=== PATIENT | female | born 1995 | race Caucasian/White ===

== ENCOUNTER 2016-09-15 14:35 | Emergency (ER) | payer OTHER ==
[~2016-09-15] VITALS: Wt 102.0 kg
[~2016-09-15 14:35] MED LIST: ALBU18HF INHALATION; ALBU2.5V3 NEB; ALBU8.5H5 IH; CALC-176 PO; FERR325C PO; FLUT16SP17 NASAL; LORA10CA PO; PREN1TAB74 PO
[2016-09-15] MEDS ORDERED: IBUP-1542 PO (16:06)
--- NOTE | 2016-09-15 16:09 | ERD ---
ER Documentation Chief Complaint Date/Time DATE: 09/15/16 TIME: 16:07 Chief Complaint CHEST PAIN X 2 MONTHS HPI This 20 year-old female presents with left-sided chest pain for last 2 months. Is intermittent and worse with movement and deep breathing. She has no history of hemoptysis, fevers, leg swelling shortness of breath. ROS All systems reviewed and are negative except as per history of present illness. Medications Home Meds Active Scripts Ibuprofen* (Motrin*) 600 Mg Tab, 600 MG PO Q6, #20 TAB Prov:WAYNE OVERTON MD 09/15/16 Loratadine* (Claritin*) 10 Mg Capsule, 10 MG PO DAILY for 14 Days, CAP Prov:CHAD DIEZ PA-C 04/15/16 Fluticasone Propionate* (Fluticasone Propionate* Nasal) 50 Mcg/[place] - 16 Gm [place].susp, 1 SPRAY NASAL BID, #1 BOTTLE TO EACH NOSTRIL Prov:CHAD DIEZ PA-C 04/15/16 Albuterol Sulfate* (Albuterol Sulfate* Neb) 0.083%-3 Ml Neb, 2.5 MG NEB Q4 Y for SHORTNESS OF BREATH, #30 EA Prov:CHAD DIEZ PA-C 04/15/16 Albuterol Sulfate* (Ventolin HFA*) 18 Gm Hfa.aer.ad, 2 PUFF INHALATION Q4H, #1 INHALER Prov:CHAD DIEZ PA-C 04/15/16 Reported Medications Ferrous Sulfate (Iron) 325 Mg Capsr, 325 MG PO DAILY 11/30/15 Calcium Cmb 2-Mag Cmb 12-Vit D3 (Calcium 500) 1 Each Tablet, 1 TAB PO, TAB 11/30/15 Vit-Iron Fumarate-FA ( Vitamin Formula) 1 Tab Tablet, 1 TAB PO DAILY, TAB 11/30/15 Albuterol Sulfate* (Albuterol Sulfate* HFA) 8.5 Gm Hfa.aer.ad, 2 PUFF IH Q6 Y for SHORTNESS OF BREATH, EA 07/04/14 Allergies Allergies: Coded Allergies: No Known Allergy (Unverified , 04/14/16) PMhx/Soc Medical and Surgical Hx: pt denies Surgical Hx History of Surgery: No Anesthesia Reaction: No Hx Neurological Disorder: No Hx Respiratory Disorders: Yes (asthma) Hx Cardiac Disorders: No Hx Psychiatric Problems: No Hx Miscellaneous Medical Probl: No Hx Alcohol Use: No Hx Substance Use: No Hx Tobacco Use: No Smoking Status: Never smoker Physical Exam Vitals Vital Signs Date Time Temp Pulse Resp B/P Pulse Ox O2 Delivery O2 Flow Rate FiO2 09/15/16 14:38 98.0 71 18 140/71 99 Physical Exam Const: [] Alert, [id number], pleasant Head: Atraumatic Eyes: Normal Conjunctiva ENT: Normal External Ears, Nose and Mouth. Neck: Full range of motion..~ No meningismus. Resp: Clear to auscultation bilaterally Cardio: Regular rate and rhythm, no murmurs. Mild reproducible left-sided pain at the costochondral junction. Abd: Soft, non tender, non distended. Normal bowel sounds Skin: No petechiae or rashes Back: No midline or flank tenderness Ext: No cyanosis, or edema Neur: Awake and alert Psych: Normal Mood and Affect Procedures/MDM Chest X-ray 1V Interpreted by me: Soft Tissue: No acute abnormalities Bones: No acute abnormalities Mediastinum/Cardiac Silhouette/Lungs: [No acute abnormalities]. Impression- normal 1 view chest x-ray EKG: Rate/Rhythm: [Normal Sinus Rhythm] rate equals 62 QRS, ST, T-waves: [No changes consistent w/ acute ischemia] Impression: [No evidence of ischemia or arrhythmia]. Impression-normal EKG Patient presents with 2 month history of intermittent left chest wall pain, likely costochondritis. Patient will be treated ibuprofen and observation at home. The patient was stable with no new complaints during the ER course. Clinically, there is no current evidence to suggest meningitis, sepsis, acute abdomen, pneumonia, acute coronary syndrome, pulmonary embolism, or any other emergent condition appearing to require further evaluation or hospitalization. The patient should certainly return for any new or worsening symptoms per the aftercare instructions. They should otherwise follow-up with her primary care doctor for reevaluation this week. Departure Diagnosis: Primary Impression: Chest pain Chest pain type: unspecified Qualified Code: R07.9 - Chest pain, unspecified type Condition: Stable Patient Instructions: Chest Wall Pain, Costochondritis Additional Instructions: X-ray and EKG normal. Likely costochondritis. Recheck for new or worsening symptoms-fever, shortness breath or with primary care doctor. WAYNE OVERTON MD Sep 15, 2016 16:09
--- NOTE | 2016-09-15 16:19 | RADRPT ---
PROCEDURE: XR Chest. CLINICAL INDICATION: Chest pain. TECHNIQUE: Single frontal view of the chest was obtained COMPARISON: Chest x-ray 04/15/2016. FINDINGS: The soft tissues are normal. The bony elements are normal. The heart, left side aorta, cardiomedias tinal silhouette, pulmonary vasculature and hilar structures are normal. The lungs are clear. The co stophrenic angles are normal. IMPRESSION: 1. Stable chest x-ray with no evidence of active cardiopulmonary disease. RPTAT:AAJJ Physician Pauline Date Time Electronically viewed and signed by John Deshpande Physician on 09/15/2016 16:19 BUSHRA/
== END 2016-09-15 17:10 | disposition home or self-care (01) ==
LOC: FTE 14:35
DX: R07.1 Chest pain on breathing (principal); J45.909 Unspecified asthma, uncomplicated
CPT/HCPCS: 71010; Z7502

== ENCOUNTER 2016-10-13 19:56 | Emergency (ER) | payer OTHER ==
[~2016-10-13] VITALS: Ht 162.6 cm; Wt 114.5 kg
[~2016-10-13 19:56] MED LIST changes: +IBUP-1542 PO
[2016-10-13 20:02] VITALS: Ht 162.6 cm; Wt 114.5 kg
[2016-10-13] MEDS ORDERED: ACETAMINOPHEN 325 MG TAB PO ONE (21:00)
[2016-10-13] MEDS ORDERED: SOD CHLORIDE 0.9% 1,000 ML IV ONE (21:00)
[2016-10-13 21:22] LABS: ADD SCAN DIFF NO
[2016-10-13 21:28] LABS: ABNORMAL IP MESSAGE 1; BASOPHILS % 0.4 % (0.0-2.0); EOSINOPHILS # 0.1 10^3/ul (0.0-0.5); EOSINOPHILS % 0.7 % (0.0-7.0); HEMATOCRIT 38.5 % (37.0-47.0); HEMOGLOBIN 12.6 g/dl (12.0-16.0); LYMPHOCYTES # 0.5 10^3/ul (0.8-2.9); LYMPHOCYTES % 6.9 % (18.0-55.0); MEAN CORPUSCULAR HEMOGLOBIN 25.7 pg (29.0-33.0); MEAN CORPUSCULAR HGB CONC 32.7 g/dl (32.0-37.0); MEAN CORPUSCULAR VOLUME 78.4 fl (72.0-104.0); MEAN PLATELET VOLUME 9.3 fl (7.4-10.4); MONOCYTE # 0.7 10^3/ul (0.3-0.9); MONOCYTES % 10.1 % (0.0-13.0); NEUTROPHIL # 5.9 10^3/ul (1.6-7.5); NEUTROPHILS % 81.3 % (30.0-74.0); PLATELET COUNT 183 10^3/UL (140-415); RED BLOOD COUNT 4.91 10^6/ul (4.20-5.40); RED CELL DISTRIBUTION WIDTH 14.1 % (11.5-14.5); WHITE BLOOD COUNT 7.3 10^3/ul (4.8-10.8)
[2016-10-13 21:35] LABS: ADD UMIC YES; URINE BILIRUBIN (Dip) NEGATIVE (NEGATIVE); URINE BLOOD (Dip) NEGATIVE (NEGATIVE); URINE COLOR LT. YELLOW (YELLOW); URINE GLUCOSE (Dip) NEGATIVE (NEGATIVE); URINE KETONES (Dip) NEGATIVE (NEGATIVE); URINE LEUKOCYTE ESTERASE (Dip) 2+ (NEGATIVE); URINE NITRITE (Dip) NEGATIVE (NEGATIVE); URINE TOTAL PROTEIN (Dip) NEGATIVE (NEGATIVE); URINE UROBILINOGEN (Dip) 0.2 E.U./dL (0.1-1.0)
[2016-10-13 21:40] LABS: ALBUMIN 4.4 g/dl (3.3-4.9); POTASSIUM 3.5 mmol/L (3.5-5.1)
[2016-10-13 21:42] LABS: CREATININE 0.64 mg/dl (0.44-1.00)
[2016-10-13 21:43] LABS: ALBUMIN/GLOBULIN RATIO 1.29; CALCIUM 8.7 mg/dl (8.4-10.2); TOTAL PROTEIN 7.8 g/dl (6.1-8.1)
[2016-10-13] MEDS ORDERED: ACET325T33 PO (21:58)
[2016-10-13] MEDS ORDERED: CEPH-443 PO (21:58)
[2016-10-13 21:59] LABS: SQUAMOUS EPITHELIAL CELL,UR MANY
[2016-10-13 22:00] LABS: BACTERIA,URINE FEW; URINE RBCS 0-2 /HPF (0)
[2016-10-13 22:46] VITALS: BP 122/68; PULSE 103; RESP 20; TEMP 98.3
--- NOTE | 2016-10-20 | ERD ---
ER Documentation Chief Complaint Date/Time DATE: 10/19/16 TIME: 23:54 Chief Complaint 6 weeks , low back pain x 2 days, fever today, chills HPI pt is a [id number] 6 week 20 yo female presenting to the ED due to low back pain bilaterally which began yesterday. Today she had tactile fevers. Symptoms are mild. No vaginal bleeding or discharge reported. The pt denies urinary sxs. NO other symptoms to report at this time. ROS All systems reviewed and are negative except as per history of present illness. Medications Home Meds Active Scripts Acetaminophen* (Tylenol*) 325 Mg Tablet, 2 TAB PO Q6 Y for PAIN AND OR ELEVATED TEMP, #20 TAB Prov:BISMARK WARD PA-C 10/13/16 Cephalexin* (Keflex*) 500 Mg Capsule, 500 MG PO BID for 7 Days, #14 CAP Prov:BISMARK WARD PA-C 10/13/16 Ibuprofen* (Motrin*) 600 Mg Tab, 600 MG PO Q6, #20 TAB Prov:WAYNE STARKS MD 09/15/16 Loratadine* (Claritin*) 10 Mg Capsule, 10 MG PO DAILY for 14 Days, CAP Prov:CHAD DIEZ PA-C 04/15/16 Fluticasone Propionate* (Fluticasone Propionate* Nasal) 50 Mcg/[place] - 16 Gm [place].susp, 1 SPRAY NASAL BID, #1 BOTTLE TO EACH NOSTRIL Prov:CHAD DIEZ PA-C 04/15/16 Albuterol Sulfate* (Albuterol Sulfate* Neb) 0.083%-3 Ml Neb, 2.5 MG NEB Q4 Y for SHORTNESS OF BREATH, #30 EA Prov:CHAD DIEZ PA-C 04/15/16 Albuterol Sulfate* (Ventolin HFA*) 18 Gm Hfa.aer.ad, 2 PUFF INHALATION Q4H, #1 INHALER Prov:CHAD DIEZ PA-C 04/15/16 Reported Medications Ferrous Sulfate (Iron) 325 Mg Capsr, 325 MG PO DAILY 11/30/15 Calcium Cmb 2-Mag Cmb 12-Vit D3 (Calcium 500) 1 Each Tablet, 1 TAB PO, TAB 11/30/15 Vit-Iron Fumarate-FA ( Vitamin Formula) 1 Tab Tablet, 1 TAB PO DAILY, TAB 11/30/15 Albuterol Sulfate* (Albuterol Sulfate* HFA) 8.5 Gm Hfa.aer.ad, 2 PUFF IH Q6 Y for SHORTNESS OF BREATH, EA 07/04/14 Allergies Allergies: Coded Allergies: No Known Allergy (Unverified , 04/14/16) PMhx/Soc Medical and Surgical Hx: pt denies Surgical Hx History of Surgery: No Anesthesia Reaction: No Hx Neurological Disorder: No Hx Respiratory Disorders: Yes (asthma) Hx Cardiac Disorders: No Hx Psychiatric Problems: No Hx Miscellaneous Medical Probl: No Hx Alcohol Use: No Hx Substance Use: No Hx Tobacco Use: No Smoking Status: Never smoker FmHx non contributory for chief complaint. Physical Exam Vitals temp: 101.4F pulse: 122 BP: 136/74 Resp 20 O2 sat 98% on RA. Physical Exam Const: Pt is resting comfortably in no acute distress. Head: Atraumatic Eyes: Normal Conjunctiva ENT: Normal External Ears, Nose and Mouth. Neck: Full range of motion..~ No meningismus. Resp: Clear to auscultation bilaterally Cardio: Regular rate and rhythm, no murmurs Abd: Soft, non tender, non distended. Normal bowel sounds Skin: No petechiae or rashes Back: No midline or flank tenderness Ext: No cyanosis, or edema Neur: Awake and alert Psych: Normal Mood and Affect Results 24 hrs Laboratory Tests Test 10/13/16 20:59 10/13/16 21:10 Urine Bacteria FEW Urine Bilirubin NEGATIVE Urine Clarity CLOUDY Urine Color LT. YELLOW Urine Glucose NEGATIVE% Urine Hemoglobin NEGATIVE Urine Ketones NEGATIVE Urine Leukocyte Esterase 2+ Urine Microscopic RBC 0-2/HPF Urine Microscopic WBC 10-25/HPF Urine Nitrite NEGATIVE Urine Specific [place] 1.015 Urine Squamous Epithelial Cells MANY Urine Total Protein NEGATIVE Urine Urobilinogen 0.2 E.U./dL Urine pH 6.0 Alanine Aminotransferase (ALT/SGPT) 23IU/L Albumin 4.4g/dl Albumin/Globulin Ratio 1.29 Alkaline Phosphatase 91IU/L Anion Gap 20 Aspartate Amino Transf (AST/SGOT) 18IU/L Basophils # 0.010^3/ul Basophils % 0.4% Blood Urea Nitrogen 6mg/dl Calcium Level 8.7mg/dl Carbon Dioxide Level 24mmol/L Chloride Level 100mmol/L Creatinine 0.64mg/dl Direct Bilirubin 0.00mg/dl Eosinophils # 0.110^3/ul Eosinophils % 0.7% Globulin 3.40g/dl Glucose Level 95mg/dl Hematocrit 38.5% Hemoglobin 12.6g/dl Indirect Bilirubin 0.0mg/dl Lipase 53U/L Lymphocytes # 0.510^3/ul Lymphocytes % 6.9% Mean Corpuscular Hemoglobin 25.7pg Mean Corpuscular Hemoglobin Concent 32.7g/dl Mean Corpuscular Volume 78.4fl Mean Platelet Volume 9.3fl Monocytes # 0.710^3/ul Monocytes % 10.1% Neutrophils # 5.910^3/ul Neutrophils % 81.3% Nucleated Red Blood Cells # 0.010^3/ul Nucleated Red Blood Cells % 0.0/100WBC Platelet Count 93022^3/UL Potassium Level 3.5mmol/L Red Blood Count 4.9110^6/ul Red Cell Distribution Width 14.1% Sodium Level 140mmol/L Total Bilirubin 0.0mg/dl Total Protein 7.8g/dl White Blood Count 7.310^3/ul Current Medications Medications (Trade) Dose Ordered Sig/Philip Route PRN Reason Start Time Stop Time Status Last Admin Dose Admin Acetaminophen 650 mg 650 mg ONCE ONCE PO 10/13/16 21:00 10/13/16 21:01 DC 10/13/16 21:06 Sodium Chloride (NS) 1,000 ml @ 1,000 mls/hr Q1H ONCE IV 10/13/16 21:00 10/13/16 21:59 DC 10/13/16 21:01 Procedures/MDM 20 yo female presents secondary to complaints of tactile fevers. UA was positive for UTI. All other labs unremarkable for acute abnormalities. Flu swab positive for influenza A. Pt will be treated as an outpatient with rx for cephalexin. The pt agrees and understands treatment plan and diagnosis. Pt felt improved after IV fluids and Acetaminophen in the department. I discussed this case with supervising physician, Dr. Wayne Starks, who agreed with ED course. Departure Diagnosis: Primary Impression: Influenza A Additional Impressions: Urinary tract infection Fever Condition: Fair Patient Instructions: Understanding Urinary Tract Infections (UTIs), Fever Control (Adult), Influenza (Adult) Referrals: [facility] YOU HAVE RECEIVED A MEDICAL SCREENING EXAM AND THE RESULTS INDICATE THAT YOU DO NOT HAVE A CONDITION THAT REQUIRES URGENT TREATMENT IN THE EMERGENCY DEPARTMENT. FURTHER EVALUATION AND TREATMENT OF YOUR CONDITION CAN WAIT UNTIL YOU ARE SEEN IN YOUR DOCTORS OFFICE WITHIN THE NEXT 1-2 DAYS. IT IS YOUR RESPONSIBILITY TO MAKE AN APPOINTMENT FOR FOLOW-UP CARE. IF YOU HAVE A PRIMARY DOCTOR --you should call your primary doctor and schedule an appointment IF YOU DO NOT HAVE A PRIMARY DOCTOR YOU CAN CALL OUR PHYSICIAN REFERRAL HOTLINE AT IF YOU CAN NOT AFFORD TO SEE A PHYSICIAN YOU CAN CHOSE FROM THE FOLLOWING [facility] [address] [facility]. [facility] [address] [facility] [address] [facility] [address] [facility] [address] [facility]. [facility]. [address] Additional Instructions: Follow-up with your primary care physician within 1 week. Return to the emergency department immediately should you have any new or worsening symptoms, uncontrolled fevers, or other unexplained symptoms. Take all medications as directed. BISMARK WARD PA-C Oct 19, 2016 23:59
== END 2016-10-13 22:47 | disposition home or self-care (01) ==
LOC: FTE 19:56
DX: O99.511 Diseases of the respiratory system complicating pregnancy, first trimester (principal); J10.1 Influenza due to other identified influenza virus with other respiratory manifestations; O23.41 Unspecified infection of urinary tract in pregnancy, first trimester; J45.909 Unspecified asthma, uncomplicated; R50.9 Fever, unspecified; Z3A.01 Less than 8 weeks gestation of pregnancy
CPT/HCPCS: 80053; 81001; 83690; 85025; 87400; J7030; Z7502; Z7610; 81003

== ENCOUNTER 2016-12-20 01:51 | Emergency (ER) | payer OTHER ==
[~2016-12-20] VITALS: Ht 167.6 cm; Wt 113.0 kg
[~2016-12-20 01:51] MED LIST changes: +ACET325T33 PO; +CEPH-443 PO
[2016-12-20 01:54] VITALS: Ht 167.6 cm; Wt 113.0 kg
[2016-12-20 02:33] LABS: URINE BLOOD (Dip) POC Trace-lysed (NEGATIVE)
[2016-12-20 02:56] LABS: ADD SCAN DIFF NO
[2016-12-20 02:59] LABS: BASOPHILS % 0.3 % (0.0-2.0); EOSINOPHILS # 0.1 10^3/ul (0.0-0.5); EOSINOPHILS % 1.2 % (0.0-7.0); HEMATOCRIT 35.3 % (37.0-47.0); LYMPHOCYTES % 7.9 % (15.0-51.0); MEAN CORPUSCULAR HEMOGLOBIN 27.3 pg (29.0-33.0); MEAN CORPUSCULAR VOLUME 80.4 fl (82.0-101.0); MEAN PLATELET VOLUME 9.4 fl (7.4-10.4); MONOCYTE # 0.8 10^3/ul (0.3-0.9); MONOCYTES % 6.5 % (0.0-11.0); NEUTROPHIL # 10.2 10^3/ul (1.6-7.5); NEUTROPHILS % 83.7 % (39.0-77.0); PLATELET COUNT 179 10^3/UL (140-415); RED BLOOD COUNT 4.39 10^6/ul (4.20-5.40); RED CELL DISTRIBUTION WIDTH 13.8 % (11.5-14.5); WHITE BLOOD COUNT 12.2 10^3/ul (4.8-10.8)
[2016-12-20] MEDS ORDERED: LIDOCAINE/MYLANTA 40 ML BTL PO ONE (03:00)
[2016-12-20 03:05] LABS: ADD UMIC YES; URINE BILIRUBIN (Dip) NEGATIVE (NEGATIVE); URINE BLOOD (Dip) TRACE (NEGATIVE); URINE COLOR LT. YELLOW (YELLOW); URINE GLUCOSE (Dip) NEGATIVE (NEGATIVE); URINE KETONES (Dip) NEGATIVE (NEGATIVE); URINE LEUKOCYTE ESTERASE (Dip) 2+ (NEGATIVE); URINE NITRITE (Dip) NEGATIVE (NEGATIVE); URINE TOTAL PROTEIN (Dip) NEGATIVE (NEGATIVE); URINE UROBILINOGEN (Dip) 0.2 E.U./dL (0.1-1.0)
[2016-12-20 03:32] LABS: BACTERIA,URINE MANY; SQUAMOUS EPITHELIAL CELL,UR MANY
--- NOTE | 2016-12-20 03:32 | RADRPT ---
PROCEDURE: US abdomen limited right upper quadrant. CLINICAL INDICATION: Pain, TECHNIQUE: Multiple real-time images were acquired of the patient's right upper quadrant of the ab domen utilizing a high resolution transducer. COMPARISON: CT abdomen and pelvis of 03/11/2014 FINDINGS: No gallstones are identified within the gallbladder. Nonshadowing echoes which could represent sludg e may be present in the gallbladder on the submitted images. There is no pericholecystic fluid or gallbladder wall thickening. The common bile duct measures 4 mm in maximal dimension. No free fluid is identified. No abnormality is seen in the liver. The length of the liver equals 19. 1 cm which appears to be secondary to a Reidel's lobe, normal variant. No abnormality seen in the p ancreatic head or body. The pancreatic tail is obscured by bowel gas. The right kidney measures 11. 9 cm in length and is unremarkable. IMPRESSION: Pancreatic tail not seen. Nonshadowing echoes which could represent sludge may be present in the ga llbladder on the submitted images. Otherwise unremarkable examination. RPTAT: HJES .Fer Rider MD, MD Date Time Electronically viewed and signed by .Fer Rider MD, on 12/20/2016 03:31 .S/
--- NOTE | 2016-12-20 03:39 | RADRPT ---
PROCEDURE: US OB. CLINICAL INDICATION: Vaginal bleeding, pain. Clinical estimate gestational age of 15 weeks 5 day s with estimated date of delivery 06/08/2017 TECHNIQUE: Multiple sonographic images of the pelvis were obtained. The images were reviewed on a PACS workstation. COMPARISON: No prior studies are available for comparison. FINDINGS: There is a single live intrauterine gestation. Cardiac activity is present with 152 beats per minut e. There is a variable presentation. Measurements were made in order to determine age. The results are as follows: BPD =3.4 cm, 16 weeks 3 days HC =12.46 cm, 16 weeks 2 days AC =11.4 cm, 17 weeks 1 day FL =2.11 cm, 16 weeks 2 days. Estimated gestational age of approximately 16 weeks 4 days The estimated date of delivery is 06/02/2017. The EFW = 165.93 g, 0 pounds 6 ounces, 95.1% . The placenta is posterior and grade 0 and appears to be low-lying with the inferior tip of the place nta approximately 0.74 cm from the internal cervical os. There is no evidence for an abruption. There is a normal amount of amniotic fluid with the maximum vertical pocket = 4.4 cm. IMPRESSION: Single live intrauterine gestation of approximately 16 weeks 4 days based on ultrasound measurements . The estimated date of delivery is 06/02/2017 . Appearance of low-lying placenta. Follow-up is re commended. RPTAT: HJES .Fer Rider MD, Date Time Electronically viewed and signed by .Fer Rider MD, on 12/20/2016 03:39 .S/
--- NOTE | 2016-12-20 04:34 | ERD ---
ER Documentation Chief Complaint Date/Time DATE: 12/20/16 TIME: 04:33 Chief Complaint 15 wks , epigastric pain x 2 days HPI This is a 21-year-old female 15 weeks comes with epigastric pain for 2 days. Pain is mild to moderate sensation and burning. Mild nausea no vomiting. No abdominal pain. No vaginal bleeding. No other current complaints. ROS All systems reviewed and are negative except as per history of present illness. Medications Home Meds Active Scripts Acetaminophen* (Tylenol*) 325 Mg Tablet, 2 TAB PO Q6 Y for PAIN AND OR ELEVATED TEMP, #20 TAB Prov:BISMARK WARD PA-C 10/13/16 Cephalexin* (Keflex*) 500 Mg Capsule, 500 MG PO BID for 7 Days, #14 CAP Prov:BISMARK WARD PA-C 10/13/16 Ibuprofen* (Motrin*) 600 Mg Tab, 600 MG PO Q6, #20 TAB Prov:WAYNE OVERTON MD 09/15/16 Loratadine* (Claritin*) 10 Mg Capsule, 10 MG PO DAILY for 14 Days, CAP Prov:CHAD DIEZ PA-C 04/15/16 Fluticasone Propionate* (Fluticasone Propionate* Nasal) 50 Mcg/[place] - 16 Gm [place].susp, 1 SPRAY NASAL BID, #1 BOTTLE TO EACH NOSTRIL Prov:CHAD DIEZ PA-C 04/15/16 Albuterol Sulfate* (Albuterol Sulfate* Neb) 0.083%-3 Ml Neb, 2.5 MG NEB Q4 Y for SHORTNESS OF BREATH, #30 EA Prov:CHAD DIEZ PA-C 04/15/16 Albuterol Sulfate* (Ventolin HFA*) 18 Gm Hfa.aer.ad, 2 PUFF INHALATION Q4H, #1 INHALER Prov:CHAD DIEZ PA-C 04/15/16 Reported Medications Ferrous Sulfate (Iron) 325 Mg Capsr, 325 MG PO DAILY 11/30/15 Calcium Cmb 2-Mag Cmb 12-Vit D3 (Calcium 500) 1 Each Tablet, 1 TAB PO, TAB 11/30/15 Vit-Iron Fumarate-FA ( Vitamin Formula) 1 Tab Tablet, 1 TAB PO DAILY, TAB 11/30/15 Albuterol Sulfate* (Albuterol Sulfate* HFA) 8.5 Gm Hfa.aer.ad, 2 PUFF IH Q6 Y for SHORTNESS OF BREATH, EA 07/04/14 Allergies Allergies: Coded Allergies: No Known Allergy (Unverified , 04/14/16) PMhx/Soc Medical and Surgical Hx: pt denies Surgical Hx History of Surgery: No Anesthesia Reaction: No Hx Neurological Disorder: No Hx Respiratory Disorders: Yes (asthma) Hx Cardiac Disorders: No Hx Psychiatric Problems: No Hx Miscellaneous Medical Probl: No Hx Alcohol Use: No Hx Substance Use: No Hx Tobacco Use: No Smoking Status: Never smoker Physical Exam Vitals Vital Signs Date Time Temp Pulse Resp B/P Pulse Ox O2 Delivery O2 Flow Rate FiO2 12/20/16 01:54 98.8 80 20 119/59 98 Physical Exam Const: [] Head: Atraumatic Eyes: Normal Conjunctiva ENT: Normal External Ears, Nose and Mouth. Neck: Full range of motion..~ No meningismus. Resp: Clear to auscultation bilaterally Cardio: Regular rate and rhythm, no murmurs Abd: Soft, non tender, non distended. Normal bowel sounds Skin: No petechiae or rashes Back: No midline or flank tenderness Ext: No cyanosis, or edema Neur: Awake and alert Psych: Normal Mood and Affect Result Diagram: 12/20/16 0248 Results 24 hrs Laboratory Tests Test 12/20/16 02:35 12/20/16 02:40 12/20/16 02:48 Bedside Urine pH (LAB) 5.5 Bedside Urine Protein (LAB) Negative Bedside Urine Glucose (UA) Negative Bedside Urine Ketones (LAB) Negative Bedside Urine Blood Trace-lysed Bedside Urine Nitrite (LAB) Negative Bedside Urine Leukocyte Esterase (L 1+ Urine Color LT. YELLOW Urine Clarity CLEAR Urine pH 6.0 Urine Specific [place] 1.025 Urine Ketones NEGATIVE Urine Nitrite NEGATIVE Urine Bilirubin NEGATIVE Urine Urobilinogen 0.2 E.U./dL Urine Leukocyte Esterase 2+ Urine Microscopic RBC 2-5/HPF Urine Microscopic WBC 10-25/HPF Urine Squamous Epithelial Cells MANY Urine Bacteria MANY Urine Hemoglobin TRACE Urine Glucose NEGATIVE% Urine Total Protein NEGATIVE White Blood Count 12.210^3/ul Red Blood Count 4.3910^6/ul Hemoglobin 12.0g/dl Hematocrit 35.3% Mean Corpuscular Volume 80.4fl Mean Corpuscular Hemoglobin 27.3pg Mean Corpuscular Hemoglobin Concent 34.0g/dl Red Cell Distribution Width 13.8% Platelet Count 63199^3/UL Mean Platelet Volume 9.4fl Neutrophils % 83.7% Lymphocytes % 7.9% Monocytes % 6.5% Eosinophils % 1.2% Basophils % 0.3% Nucleated Red Blood Cells % 0.0/100WBC Neutrophils # 10.210^3/ul Lymphocytes # 1.010^3/ul Monocytes # 0.810^3/ul Eosinophils # 0.110^3/ul Basophils # 0.010^3/ul Nucleated Red Blood Cells # 0.010^3/ul Beta HCG, Quantitative 01752.0mIU/ml Current Medications Medications (Trade) Dose Ordered Sig/Philip Route PRN Reason Start Time Stop Time Status Last Admin Dose Admin Miscellaneous Medication (Gi Cocktail (2)) 40 ml ONCE ONCE PO 12/20/16 03:00 12/20/16 03:01 DC 12/20/16 03:25 Procedures/MDM Medical decision-making: This is a very pleasant 21-year-old female comes with epigastric abdominal pain likely secondary to gastritis. At this point clinically stable. Pain resolved with GI cocktail. Discharge home with Zantac. Follow-up in 8 hours for serial abdominal exams. Patient also has evidence of UTI and will be discharged home with Keflex pending urine culture results. Departure Diagnosis: Primary Impression: Epigastric pain Additional Impression: UTI (urinary tract infection) Urinary tract infection type: acute cystitis Hematuria presence: without hematuria Qualified Code: N30.00 - Acute cystitis without hematuria Condition: Stable BISMARK CURIEL December 20, 2016 04:34
[2016-12-20 04:36] VITALS: BP 107/67; PULSE 68; RESP 18
[2016-12-20] MEDS ORDERED: RANI150T9 PO (04:38)
[2016-12-20] MEDS ORDERED: CEPH-443 PO (04:38)
== END 2016-12-20 04:47 | disposition home or self-care (01) ==
LOC: E/R 01:51
DX: O26.892 Other specified pregnancy related conditions, second trimester (principal); R10.13 Epigastric pain; O23.12 Infections of bladder in pregnancy, second trimester; O99.512 Diseases of the respiratory system complicating pregnancy, second trimester; J45.909 Unspecified asthma, uncomplicated; Z3A.16 16 weeks gestation of pregnancy
CPT/HCPCS: 36415; 76705; 76801; 81001; 84702; 85025; 86900; 86901; Z7502; Z7610; 81003

== ENCOUNTER 2018-02-11 19:52 | Emergency (ER) | END 2018-02-12 01:04 | disposition home or self-care (01) ==

== ENCOUNTER 2018-02-23 21:44 | Emergency (ER) | END 2018-02-24 03:35 | disposition home or self-care (01) ==

== ENCOUNTER 2019-02-09 21:35 | Emergency (ER) | payer OTHER ==
[~2019-02-09] VITALS: Ht 170.2 cm; Wt 121.4 kg
[~2019-02-09 21:35] MED LIST changes: +ACET500C5 PO; +FAMO20TA18 PO; +RANI150T35 PO
[2019-02-09 21:40] VITALS: Ht 170.2 cm; Wt 121.4 kg
[2019-02-09] MEDS ORDERED: ACETAMINOPHEN 500 MG TAB PO STA (22:12)
[2019-02-09] MEDS ORDERED: CEPH-443 PO (23:41)
--- NOTE | 2019-02-09 23:42 | ERD ---
ER Documentation Chief Complaint Chief Complaint Diarrhea and cramping since this morning HPI 23-year-old female presents to ED complaining of diarrhea and cramping pain since this morning. She reports that the abdominal pain is located all around her stomach and rates it as 9 out of 10 intensity at worst that is intermittent in character. She denies any radiation of abdominal pain. She denies any fevers or chills. She denies any sick contacts. She reports diarrhea several times today. She denies any blood in her diarrhea. She reports recent travel from [place] for 2 weeks that she just returned back to February 03. Past medical history: She reports H pylori ROS All systems reviewed and are negative except as per history of present illness. Medications Home Meds Active Scripts Cephalexin* (Keflex*) 500 Mg Capsule, 500 MG PO BID for 7 Days, CAP Prov:ARRON ALCARAZ PA-C 02/09/19 Acetaminophen* (Tylophen*) 500 Mg Capsule, 1 CAP PO Q6H PRN for PAIN AND OR ELEVATED TEMP, #20 CAP Prov:DAYNA JAVIER PA-C 02/24/18 Cephalexin* (Keflex*) 500 Mg Capsule, 500 MG PO TID for 7 Days, CAP Prov:DAYNA JAVIERC 02/24/18 Famotidine* (Famotidine*) 20 Mg Tablet, 20 MG PO BID, #60 TAB Prov:OLIVER HELLER 02/12/18 Ranitidine Hcl* (Zantac*) 150 Mg Tablet, 150 MG PO BID PRN for EPIGASTRIC PAIN, #30 TAB Prov:BISMARK CURIEL 12/20/16 Cephalexin* (Keflex*) 500 Mg Capsule, 500 MG PO QID for 7 Days, CAP Prov:BISMARK CURIEL 12/20/16 Acetaminophen* (Tylenol*) 325 Mg Tablet, 2 TAB PO Q6 PRN for PAIN AND OR ELEVATED TEMP, #20 TAB Prov:BISMARK WARD PA-C 10/13/16 Cephalexin* (Keflex*) 500 Mg Capsule, 500 MG PO BID for 7 Days, #14 CAP Prov:BISMARK WARD PA-C 10/13/16 Ibuprofen* (Motrin*) 600 Mg Tab, 600 MG PO Q6, #20 TAB Prov:WAYNE OVERTON MD 09/15/16 Loratadine* (Claritin*) 10 Mg Capsule, 10 MG PO DAILY for 14 Days, CAP Prov:CHAD DIEZ PA-C 04/15/16 Fluticasone Propionate* (Fluticasone Propionate* Nasal) 50 Mcg/[place] - 16 Gm [place].susp, 1 SPRAY NASAL BID, #1 BOTTLE TO EACH NOSTRIL Prov:CHAD DIEZ PA-C 04/15/16 Albuterol Sulfate* (Albuterol Sulfate* Neb) 0.083%-3 Ml Neb, 2.5 MG NEB Q4 PRN for SHORTNESS OF BREATH, #30 EA Prov:CHAD DIEZ PA-C 04/15/16 Albuterol Sulfate* (Ventolin HFA*) 18 Gm Hfa.aer.ad, 2 PUFF INHALATION Q4H, #1 INHALER Prov:CHAD DIEZ PA-C 04/15/16 Reported Medications Ferrous Sulfate (Iron) 325 Mg Capsr, 325 MG PO DAILY 11/30/15 Calcium Cmb 2-Mag Cmb 12-Vit D3 (Calcium 500) 1 Each Tablet, 1 TAB PO, TAB 11/30/15 Vit-Iron Fumarate-FA ( Vitamin Formula) 1 Tab Tablet, 1 TAB PO DAILY, TAB 11/30/15 Albuterol Sulfate* (Albuterol Sulfate* HFA) 8.5 Gm Hfa.aer.ad, 2 PUFF IH Q6 PRN for SHORTNESS OF BREATH, EA 07/04/14 Allergies Allergies: Coded Allergies: No Known Allergy (Unverified , 04/14/16) PMhx/Soc Medical and Surgical Hx: pt denies Surgical Hx History of Surgery: No Anesthesia Reaction: No Hx Neurological Disorder: No Hx Respiratory Disorders: Yes (asthma) Hx Cardiac Disorders: No Hx Psychiatric Problems: No Hx Miscellaneous Medical Probl: No Hx Alcohol Use: No Hx Substance Use: No Hx Tobacco Use: No Smoking Status: Never smoker FmHx Family History: No diabetes Physical Exam Vitals Vital Signs Date Temp Pulse Resp B/P (MAP) Pulse Ox O2 O2 Flow FiO2 Time Delivery Rate 02/09/19 98.3 87 18 125/73 99 Room Air 23:50 (90) 02/09/19 100.1 103 24 133/77 99 21:40 (95) Physical Exam Const: No acute distress Head: Atraumatic Eyes: Normal Conjunctiva, PERRLA ENT: Normal External Ears, Nose and Mouth. Neck: Full range of motion. No meningismus. Resp: Clear to auscultation bilaterally Cardio: Regular rate and rhythm, Abd: Soft, slight tenderness to epigastric region, non distended. Obese. Normal bowel sounds Skin: No petechiae or rashes Back: No midline or flank tenderness Ext: No cyanosis, or edema Neur: Awake and alert Psych: Normal Mood and Affect Result Diagram: 02/09/19222702/09/192227 Results 24 hrs Laboratory Tests Test 02/09/19 22:28 02/09/19 22:44 02/09/19 23:15 White Blood Count 12.1 10^3/ul Red Blood Count 5.22 10^6/ul Hemoglobin 14.3 g/dl Hematocrit 42.5 % Mean Corpuscular Volume 81.4 fl Mean Corpuscular Hemoglobin 27.4 pg Mean Corpuscular 33.6 g/dl Hemoglobin Concent Red Cell Distribution Width 12.3 % Platelet Count 137 10^3/UL Mean Platelet Volume 10.0 fl Immature Granulocytes % 0.400 % Neutrophils % 86.8 % Lymphocytes % 6.0 % Monocytes % 5.8 % Eosinophils % 0.7 % Basophils % 0.3 % Nucleated Red Blood Cells % 0.0 /100WBC Immature Granulocytes # 0.050 10^3/ul Neutrophils # 10.5 10^3/ul Lymphocytes # 0.7 10^3/ul Monocytes # 0.7 10^3/ul Eosinophils # 0.1 10^3/ul Basophils # 0.0 10^3/ul Nucleated Red Blood Cells # 0.0 10^3/ul Sodium Level 143 mmol/L Potassium Level 4.2 mmol/L Chloride Level 108 mmol/L Carbon Dioxide Level 23 mmol/L Anion Gap 12 Blood Urea Nitrogen 11 mg/dl Creatinine 0.78 mg/dl Est Glomerular Filtrat > 60 mL/min Rate mL/min Glucose Level 100 mg/dl Calcium Level 9.5 mg/dl Total Bilirubin 0.6 mg/dl Direct Bilirubin 0.00 mg/dl Indirect Bilirubin 0.6 mg/dl Aspartate Amino Transf (AST/SGOT) 24 IU/L Alanine 31 IU/L Aminotransferase (ALT/SGPT) Alkaline Phosphatase 99 IU/L Total Protein 8.3 g/dl Albumin 4.6 g/dl Globulin 3.70 g/dl Albumin/Globulin Ratio 1.24 POC Beta HCG, Qualitative NEGATIVE Urine Color YELLOW Urine Clarity CLEAR Urine pH 6.0 Urine Specific [place] 1.011 Urine Ketones NEGATIVE mg/dL Urine Nitrite NEGATIVE mg/dL Urine Bilirubin NEGATIVE mg/dL Urine Urobilinogen NEGATIVE mg/dL Urine Leukocyte Esterase 1+ Ruthann/ul Urine Microscopic RBC 1 /HPF Urine Microscopic WBC 10 /HPF Urine Squamous Epithelial Cells FEW /HPF Urine Bacteria FEW /HPF Urine Hemoglobin 1+ mg/dL Urine Glucose NEGATIVE mg/dL Urine Total Protein NEGATIVE mg/dl Current Medications Medications Dose Sig/Philip Start Time Status Last (Trade) Ordered Route PRN Stop Time Admin Dose Reason Admin 500 mg ONCE STAT 02/09/19 DC 02/09/19 Acetaminophen PO 22:12 02/09/19 22:40 (Tylenol 22:15 Tab) Procedures/MDM ED COURSE: The patient was stable throughout ED course. I kept the patient informed of laboratory and diagnostic imaging results throughout the ED course. DIAGNOSTIC IMAGING: none PROCEDURES: none MEDICATIONS GIVEN: tylenol Patient tolerated medication well with no adverse reactions. Patient reported improvement in pain. MEDICAL DECISION MAKING: Patient is a 23-year-old female complaining of diarrhea and intermittent abdominal pain since this morning. She reports sudden onset of her symptoms this morning and diarrhea couple times a day. Physical exam showed slight tenderness to the epigastric region. Blood work was unremarkable. test was negative. Urinalysis shows small urinary tract infection. This patient presents to the ED with symptoms consistent with a urinary tract infection. Considering the patient history and physical during exam, other differential diagnosis that were considered include acute pyelonephritis, bladder cancer, chlamydial genitourinary infections, herpes simplex, interstitial cystitis, PID, urethrtitis, vaginitis. In addition, patient was told to stay hydrated by taking frequent small amounts of sips. Patient was told to monitor for signs of dehydration and report back to the ED if symptoms persist or worsen. Patient was discharged with medications listed below. vital signs were reviewed. Patient is afebrile. Patient was not hypoxic. Patient was hemodynamically stable. Patient was told to follow up with primary care for further care and management. PRESCRIPTION: keflex DISCHARGE: At this time, patient is stable for discharge and outpatient management. I have instructed the patient to follow-up with his/her primary care physician in 1-2 days. I have discussed with the patient the possibility of needing to see a specialist for further workup and imaging studies if symptoms persist. I have instructed the patient to promptly return to the ER for any new or worsening symptoms including increased pain, fever, nausea, vomiting, weakness or LOC. The patient expressed understanding of and agreement with this plan. All questions were answered. Home care instructions were provided. Disclaimer: Inadvertent spelling and grammatical errors are likely due to EHR/dictation software use and do not reflect on the overall quality of patient care. Also, please note that the electronic time recorded on this note does not necessarily reflect the actual time of the patient encounter. Departure Diagnosis: Primary Impression: Diarrhea Diarrhea type: unspecified type Qualified Codes: R19.7 - Diarrhea, unspecified Additional Impression: Urinary tract infection Urinary tract infection type: site unspecified Hematuria presence: without hematuria Qualified Codes: N39.0 - Urinary tract infection, site not specified Condition: Fair Patient Instructions: Treating Diarrhea, Understanding Urinary Tract Infections (UTIs), Self-Care for Vomiting and Diarrhea Referrals: [facility] YOU HAVE RECEIVED A MEDICAL SCREENING EXAM AND THE RESULTS INDICATE THAT YOU DO NOT HAVE A CONDITION THAT REQUIRES URGENT TREATMENT IN THE EMERGENCY DEPARTMENT. FURTHER EVALUATION AND TREATMENT OF YOUR CONDITION CAN WAIT UNTIL YOU ARE SEEN IN YOUR DOCTORS OFFICE WITHIN THE NEXT 1-2 DAYS. IT IS YOUR RESPONSIBILITY TO MAKE AN APPOINTMENT FOR FOLOW-UP CARE. IF YOU HAVE A PRIMARY DOCTOR --you should call your primary doctor and schedule an appointment IF YOU DO NOT HAVE A PRIMARY DOCTOR YOU CAN CALL OUR PHYSICIAN REFERRAL HOTLINE AT IF YOU CAN NOT AFFORD TO SEE A PHYSICIAN YOU CAN CHOSE FROM THE FOLLOWING [facility] [address] [facility]. [facility] [address] [facility]. [facility] [address] [facility] [address] [facility]. [facility] [address] [facility] [facility]. [address] [facility]. [facility] YOU HAVE RECEIVED A MEDICAL SCREENING EXAM AND THE RESULTS INDICATE THAT YOU DO NOT HAVE A CONDITION THAT REQUIRES URGENT TREATMENT IN THE EMERGENCY DEPARTMENT. FURTHER EVALUATION AND TREATMENT OF YOUR CONDITION CAN WAIT UNTIL YOU ARE SEEN IN YOUR DOCTORS OFFICE WITHIN THE NEXT 1-2 DAYS. IT IS YOUR RESPONSIBILITY TO MAKE AN APPOINTMENT FOR FOLOW-UP CARE. IF YOU HAVE A PRIMARY DOCTOR --you should call your primary doctor and schedule and appointment IF YOU DO NOT HAVE A PRIMARY DOCTOR YOU CAN CALL OUR PHYSICIAN REFERRAL HOTLINE AT . IF YOU CAN NOT AFFORD TO SEE A PHYSICIAN YOU CAN CHOSE FROM THE FOLLOWING [facility] INSTITUTIONS: [facility] [address] [place] [address] [facility] [address] [place] [address] [facility] [address] [place] [address] Additional Instructions: Call your primary care doctor TOMORROW for an appointment during the next 1-2 days.See the doctor sooner or return here if your condition worsens before your appointment time. ARRON ALCARAZ PA-C Feb 09, 2019 23:42
[2019-02-09 23:50] VITALS: BP 125/73; PULSE 87; RESP 18
== END 2019-02-09 23:50 | disposition home or self-care (01) ==
LOC: FTE 21:35
DX: N39.0 Urinary tract infection, site not specified (principal)
CPT/HCPCS: 36415; 80053; 81001; 81025; 85025; Z7502; Z7610; 99283

== ENCOUNTER 2019-02-28 11:41 | Emergency (ER) | payer OTHER ==
[~2019-02-28] VITALS: Ht 160 cm; Wt 120.8 kg
[2019-02-28 11:47] VITALS: BP 127/69; PULSE 77; RESP 20; Ht 160 cm; Wt 120.8 kg
--- NOTE | 2019-02-28 12:34 | ERD ---
ER Documentation Chief Complaint Chief Complaint c/o right sided abdominal pain x1 day, exacerbated by use of abd muscles HPI 23-year-old female, previously healthy, presents the emergency department, complaining of right upper quadrant abdominal pain that started 3 days ago. The patient reports that she was seen by her primary care provider last week and was told that the liver enzymes were abnormal and she was advised to come to the emergency department for an ultrasound. Patient denies fever, no chills, but she reports 2 weeks with intermittent episodes of diarrhea, with mucus but no blood. ROS All systems reviewed and are negative except as per history of present illness. Medications Home Meds Active Scripts Acetaminophen* (Tylenol*) 325 Mg Tablet, 2 TAB PO Q6 PRN for PAIN AND OR ELEVATED TEMP, #20 TAB Prov:HUGH MACARIO MD 02/28/19 Ranitidine Hcl* (Ranitidine Hcl*) 150 Mg Tablet, 150 MG PO Q12, #20 TAB Prov:HUGH MACARIO MD 02/28/19 Ciprofloxacin Hcl* (Ciprofloxacin Hcl*) 250 Mg Tablet, 250 MG PO BID, #10 TAB Prov:HUGH MACARIO MD 02/28/19 Cephalexin* (Keflex*) 500 Mg Capsule, 500 MG PO BID for 7 Days, CAP Prov:ARRON ALCARAZ PA-C 02/09/19 Acetaminophen* (Tylophen*) 500 Mg Capsule, 1 CAP PO Q6H PRN for PAIN AND OR ELEVATED TEMP, #20 CAP Prov:DAYNA JAVIER PA-C 02/24/18 Cephalexin* (Keflex*) 500 Mg Capsule, 500 MG PO TID for 7 Days, CAP Prov:DAYNA JAVIER PA-C 02/24/18 Famotidine* (Famotidine*) 20 Mg Tablet, 20 MG PO BID, #60 TAB Prov:OLIVER HELLER 02/12/18 Ranitidine Hcl* (Zantac*) 150 Mg Tablet, 150 MG PO BID PRN for EPIGASTRIC PAIN, #30 TAB Prov:BISMARK CURIEL 12/20/16 Cephalexin* (Keflex*) 500 Mg Capsule, 500 MG PO QID for 7 Days, CAP Prov:BISMARK CURIEL 12/20/16 Acetaminophen* (Tylenol*) 325 Mg Tablet, 2 TAB PO Q6 PRN for PAIN AND OR ELEVATED TEMP, #20 TAB Prov:BISMARK WARD PA-C 10/13/16 Cephalexin* (Keflex*) 500 Mg Capsule, 500 MG PO BID for 7 Days, #14 CAP Prov:BISMARK WARD PA-C 10/13/16 Ibuprofen* (Motrin*) 600 Mg Tab, 600 MG PO Q6, #20 TAB Prov:WAYNE OVERTON MD 09/15/16 Loratadine* (Claritin*) 10 Mg Capsule, 10 MG PO DAILY for 14 Days, CAP Prov:CHAD DIEZ PA-C 04/15/16 Fluticasone Propionate* (Fluticasone Propionate* Nasal) 50 Mcg/Julian - 16 Gm [place].susp, 1 SPRAY NASAL BID, #1 BOTTLE TO EACH NOSTRIL Prov:CHAD DIEZ PA-C 04/15/16 Albuterol Sulfate* (Albuterol Sulfate* Neb) 0.083%-3 Ml Neb, 2.5 MG NEB Q4 PRN for SHORTNESS OF BREATH, #30 EA Prov:CHAD DIEZ PA-C 04/15/16 Albuterol Sulfate* (Ventolin HFA*) 18 Gm Hfa.aer.ad, 2 PUFF INHALATION Q4H, #1 INHALER Prov:CHAD DIEZ PA-C 04/15/16 Reported Medications Ferrous Sulfate (Iron) 325 Mg Capsr, 325 MG PO DAILY 11/30/15 Calcium Cmb 2-Mag Cmb 12-Vit D3 (Calcium 500) 1 Each Tablet, 1 TAB PO, TAB 11/30/15 Vit-Iron Fumarate-FA ( Vitamin Formula) 1 Tab Tablet, 1 TAB PO DAILY, TAB 11/30/15 Albuterol Sulfate* (Albuterol Sulfate* HFA) 8.5 Gm Hfa.aer.ad, 2 PUFF IH Q6 PRN for SHORTNESS OF BREATH, EA 07/04/14 Allergies Allergies: Coded Allergies: No Known Allergy (Unverified , 04/14/16) PMhx/Soc History of Surgery: No Anesthesia Reaction: No Hx Neurological Disorder: No Hx Respiratory Disorders: Yes (Asthma) Hx Cardiac Disorders: No Hx Psychiatric Problems: No Hx Miscellaneous Medical Probl: Yes (H.Pylori) Hx Alcohol Use: No Hx Substance Use: No Hx Tobacco Use: No FmHx Family History: No diabetes, No coronary disease Physical Exam Vitals Vital Signs Date Temp Pulse Resp B/P (MAP) Pulse Ox O2 O2 Flow FiO2 Time Delivery Rate 02/28/19 98.8 77 20 127/69 99 11:47 (88) Physical Exam Const: No acute distress Head: Atraumatic Eyes: Normal Conjunctiva ENT: Normal External Ears, Nose and Mouth. Neck: Full range of motion. No meningismus. Resp: Clear to auscultation bilaterally Cardio: Regular rate and rhythm, no murmurs Abd: Soft, non tender, non distended. Normal bowel sounds Skin: No petechiae or rashes Back: No midline or flank tenderness Ext: No cyanosis, or edema Neur: Awake and alert Psych: Normal Mood and Affect Result Diagram: 02/28/19 1256 02/28/19 1256 Results 24 hrs Laboratory Tests Test 02/28/19 12:56 02/28/19 12:57 02/28/19 13:02 White Blood Count 7.4 10^3/ul Red Blood Count 4.67 10^6/ul Hemoglobin 12.7 g/dl Hematocrit 38.1 % Mean Corpuscular Volume 81.6 fl Mean Corpuscular Hemoglobin 27.2 pg Mean Corpuscular 33.3 g/dl Hemoglobin Concent Red Cell Distribution Width 12.4 % Platelet Count 217 10^3/UL Mean Platelet Volume 9.4 fl Immature Granulocytes % 0.300 % Neutrophils % 70.4 % Lymphocytes % 20.2 % Monocytes % 7.5 % Eosinophils % 1.1 % Basophils % 0.5 % Nucleated Red Blood Cells % 0.0 /100WBC Immature Granulocytes # 0.020 10^3/ul Neutrophils # 5.2 10^3/ul Lymphocytes # 1.5 10^3/ul Monocytes # 0.6 10^3/ul Eosinophils # 0.1 10^3/ul Basophils # 0.0 10^3/ul Nucleated Red Blood Cells # 0.0 10^3/ul Sodium Level 142 mmol/L Potassium Level 3.8 mmol/L Chloride Level 108 mmol/L Carbon Dioxide Level 23 mmol/L Anion Gap 11 Blood Urea Nitrogen 9 mg/dl Creatinine 0.63 mg/dl Est Glomerular Filtrat > 60 mL/min Rate mL/min Glucose Level 85 mg/dl Calcium Level 8.9 mg/dl Total Bilirubin 0.8 mg/dl Direct Bilirubin 0.00 mg/dl Indirect Bilirubin 0.8 mg/dl Aspartate Amino 21 IU/L Transf (AST/SGOT) Alanine 39 IU/L Aminotransferase (ALT/SGPT) Alkaline Phosphatase 69 IU/L Total Protein 7.4 g/dl Albumin 4.2 g/dl Globulin 3.20 g/dl Albumin/Globulin Ratio 1.31 Lipase 48 U/L Urine Color YELLOW Urine Clarity SLIGHTLY CLOUDY Urine pH 5.0 Urine Specific [place] 1.026 Urine Ketones NEGATIVE mg/dL Urine Nitrite NEGATIVE mg/dL Urine Bilirubin NEGATIVE mg/dL Urine Urobilinogen NEGATIVE mg/dL Urine Leukocyte Esterase 2+ Ruthann/ul Urine Microscopic RBC 3 /HPF Urine Microscopic WBC 13 /HPF Urine Squamous Epithelial Cells MODERATE /HPF Urine Bacteria FEW /HPF Urine Mucus MODERATE /HPF Urine Hemoglobin NEGATIVE mg/dL Urine Glucose NEGATIVE mg/dL Urine Total Protein NEGATIVE mg/dl POC Beta HCG, Qualitative NEGATIVE DIAGNOSTIC IMAGING REPORT Patient: AYLIN FOUNTAIN : 1995 Age: 23 Sex: F MR #: [id number] DOS: 02/28/19 1236 Ordering MD: HUGH MACARIO MD Location: [facility] Room/Bed: PROCEDURE: Right upper quadrant ultrasound CLINICAL INDICATION: Abdominal pain TECHNIQUE: Multiple real-time images were acquired of the patient's abdomen and right retroperitoneum utilizing a high resolution transducer. COMPARISON: 02/11/2018 FINDINGS: The liver is increase in echogenicity and measures 18.6 cm. No focal hepatic masses are seen. The gallbladder is physiologically distended. There is no evidence of gallstones, gallbladder wall thickening, or pericholecystic fluid. The intra and extrahepatic bile ducts are normal in caliber. The common bile duct measures 5.2 mm. Pancreas is not visualized due to overlying bowel gas. Survey views of the right kidney demonstrate no evidence of hydronephrosis or renal calculi. The right kidney measures 11.1 cm. IMPRESSION: 1. No evidence of cholelithiasis or acute cholecystitis. 2. Fatty liver Procedures/MDM Differential diagnosis include but not limited to: UTI, colitis, gastroenteritis, kidney stones, irritable bowel syndrome, inflammatory bowel syndrome, malabsorption syndrome, cholelithiasis, food intolerance, medication side effect, pancreatitis, diverticulitis, bowel obstruction. Low suspicion for acute abdomen Physical examination and clinical presentation consistent most likely with urinary tract infection. During the ED course the patient remained stable, no new complaints. Results and clinical impression discussed with patient who agrees with management. The patient is stable to be treated outpatient and will be dis charged home, some side effects of prescribed medications (headache, rash, nausea, vomiting, diarrhea, drowsiness, habituation, bleeding, hypertension, interactions with other medications) were reviewed. The patient was instructed to follow up with the primary care provider in the next 48h. If symptoms persist, worsen or new symptoms develop, then patient should return to the ED immediately. Instructions explained and given directly by me to the patient with acknowledgment and demonstrated understanding. Disclaimer: Inadvertent spelling and grammatical errors are likely due to EHR/dictation software use and do not reflect on the overall quality of patient care. Also, please note that the electronic time recorded on this note does not necessarily reflect the actual time of the patient encounter. Departure Diagnosis: Primary Impression: Abdominal pain Additional Impression: UTI (urinary tract infection) Condition: Stable Additional Instructions: Thank you very much for allowing us to participate in your care. Your health and safety is our top priority at [facility]. The evaluation in the emergency department has been done to rule out an acute emergency. Chronic, [id number] conditions may have not been evaluated; therefore, you need to follow up with a primary care provider in the next 48h. If symptoms persist, worsen or new symptoms develop, then patient should return to the ED immediately. Call your primary care doctor TOMORROW for an appointment during the next 2-4 days and bring all the information provided. Have prescriptions filled and follow precisely the directions on the label. If the symptoms get worse and your provider is unavailable, return to the Emergency Department immediately. HUGH MACARIO MD Feb 28, 2019 12:34
[2019-02-28] MEDS ORDERED: RANI150T5 PO (13:47)
[2019-02-28] MEDS ORDERED: CIPR-193 PO (13:47)
[2019-02-28] MEDS ORDERED: ACET325T33 PO (13:47)
== END 2019-02-28 14:34 | disposition home or self-care (01) ==
LOC: FTE 11:41
DX: N39.0 Urinary tract infection, site not specified (principal); J45.909 Unspecified asthma, uncomplicated
CPT/HCPCS: 76705; 80053; 81001; 81025; 83690; 85025; Z7502